=== PATIENT | female | born 1965 | race Hispanic/Latino ===

== ENCOUNTER 2023-09-12 20:48 | Emergency (ER) | payer BC ==
[~2023-09-12] VITALS: Ht 165.1 cm; Wt 83.5 kg
[2023-09-12 20:49] VITALS: BP 157/91; PULSE 98; RESP 18
== END 2023-09-12 23:13 | disposition left against medical advice (07) ==
LOC: EDH 20:48
DX: K59.00 Constipation, unspecified (principal); Z53.21 Procedure and treatment not carried out due to patient leaving prior to being seen by health care provider